=== PATIENT | male | born 1995 | race Caucasian/White ===

== ENCOUNTER 2020-06-05 05:30 | Emergency (ER) | payer OTHER ==
[~2020-06-05] VITALS: Ht 185.4 cm; Wt 90.7 kg
[2020-06-05 05:35] VITALS: BP 131/90
--- NOTE | 2020-06-05 05:40 | NUR ---
PT TAKEN TO BED 6
--- NOTE | 2020-06-05 05:43 | NUR ---
Dr. Guzman examining patient.
--- NOTE | 2020-06-05 05:46 | NUR ---
Pt c/o anxiety x 1 week, sts "my brother has anxiety and depression and has a prescription for zoloft, he gave me to pills and I took them. After I took them I feel hot on the inside and my jaw feels like its twitching". No facial spasms noted, VSS, no acute distress noted at this time.
[2020-06-05] MEDS ORDERED: LORazepam 2 MG/ML VIAL IM ONE (05:50)
[2020-06-05 06:38] VITALS: BP 128/82
--- NOTE | 2020-06-05 06:40 | NUR ---
Pt reports feeling" much better" after medication. No distress noted at this time. ACI gicento pt with verbal understanding, pt ambulated off unit with steady gait and all belongings.
== END 2020-06-05 06:40 | disposition home or self-care (01) ==
LOC: MED 05:30
DX: F41.9 Anxiety disorder, unspecified (principal); F41.0 Panic disorder [episodic paroxysmal anxiety]; R03.0 Elevated blood-pressure reading, without diagnosis of hypertension
CPT/HCPCS: 96372; 99283; J2060

== ENCOUNTER 2020-10-18 01:22 | Emergency (ER) | payer OTHER ==
[~2020-10-18] VITALS: Ht 188 cm; Wt 90.3 kg
[2020-10-18 01:27] VITALS: BP 148/79
--- NOTE | 2020-10-18 01:27 | NUR ---
TO BED AMBULATORY
--- NOTE | 2020-10-18 01:37 | NUR ---
Dr. Vargas examining patient.
--- NOTE | 2020-10-18 01:40 | NUR ---
Note undone in EDM - 10/18/20 at 0211 by [email or web address] 25 Y/O, MALE BROUGHT INTO ER WITH COMPLAINTS OF PALPITATIONS. PT REPORTS TAKING 2 UNKNOWN PILLS LAST NIGHT AT WORK. REPORTS THE PILLS WERE SUPPOSED TO BE "THC" BUT MAY BE SOMETHING ELSE. PT ALSO SMOKED HIS WAX PEN. FOR PAST 4-5 HOURS, PT STARTING TO FEEL ANXIOUS AND SHAKY, REPORTS THAT HE CANNOT DESCRIBE IT PAIN BUT MORE LIKE RACING HEART. DENIES N/V/D OR SOB. BED LOCKED AND IN LOWEST POSITION, SIDE RAILS UP. WILL CONTINUE TO MONITOR. MED HX: NONE NKA
[2020-10-18] MEDS ORDERED: LORazepam 1 MG TAB PO ONE (01:45)
--- NOTE | 2020-10-18 02:05 | NUR ---
EKG AT BEDSIDE
--- NOTE | 2020-10-18 02:05 | NUR ---
Cristy rodrigues in [facility] - 10/18/20 at 0211 by [email or web address] AMANDA AT BEDSIDE
--- NOTE | 2020-10-18 02:22 | NUR ---
Patient discharged with v/s stable. Written and verbal after care instructions given and explained. Patient verbalized understanding. Ambulatory with steady gait. All questions addressed prior to discharge. Advised to follow up with PMD. BROTHER IN WAITING ROOM TO DRIVE PATIENT HOME.
== END 2020-10-18 02:22 | disposition home or self-care (01) ==
LOC: MED 01:22
DX: F41.9 Anxiety disorder, unspecified (principal)
CPT/HCPCS: 93005; 99283